=== PATIENT | male | born 1960 | race Hispanic/Latino ===

== ENCOUNTER 2019-04-01 13:03 | Emergency (ER) | payer SELFPAY ==
[2019-04-01 13:31] LABS: BASOPHILS % (AUTO) 0.9 % (0.0-5.0); EOSINOPHILS % (AUTO) 3.9 % (0.0-8.0); HEMATOCRIT 43.3 % (42-54); LYMPHOCYTES % (AUTO) 26.7 % (21.0-51.0); MEAN CORPUSCULAR HEMOGLOBIN 29.4 pg (27.0-33.0); MEAN CORPUSCULAR HGB CONC 33.5 g/dL (32.0-36.0); MEAN CORPUSCULAR VOLUME 87.8 fL (79-99); MONOCYTES % (AUTO) 8.5 % (3.0-13.0); NEUTROPHILS % (AUTO) 59.7 % (40.0-77.0); PLATELET COUNT (AUTO) 229 K/uL (130-400); RED BLOOD CELL COUNT(AUTO) 4.93 MIL/uL (4.50-6.20); RED CELL DISTRIBUTION WIDTH 12.5 % (11.0-15.5); WHITE BLOOD COUNT (AUTO) 7.6 K/uL (4.8-10.8)
[2019-04-01 13:48] LABS: CREATININE 0.9 mg/dL (0.5-1.5); POTASSIUM 3.8 mmol/L (3.5-5.1)
[2019-04-01] MEDS ORDERED: MECLIZINE HCL 25 MG TABLET ONE ×2 (13:48→13:55)
[2019-04-01 13:52] LABS: ALBUMIN 4.2 g/dL (3.5-5.0); BILIRUBIN,TOTAL 0.2 mg/dL (0.2-1.0); TOTAL PROTEIN, SERUM 8.1 g/dL (6.0-8.3)
[2019-04-01 14:20] LABS: INR 0.93 (0.85-1.15); PARTIAL THROMBOPLASTIN TIME 24.1 SEC (26.3-35.5); PROTHROMBIN TIME 9.8 SEC (9.6-11.6)
== END 2019-04-01 15:04 | disposition home or self-care (01) ==
LOC: EDH 13:03
DX: R42 Dizziness and giddiness (principal); I10 Essential (primary) hypertension
CPT/HCPCS: 36415; 70450; 71045; 80053; 82550; 84484; 85025; 85610; 85730; 93005

== ENCOUNTER 2021-12-27 19:55 | Emergency (ER) | payer OTHER, SELFPAY ==
[~2021-12-27] VITALS: Ht 167.6 cm; Wt 86.2 kg
[2021-12-27 20:29] LABS: BASOPHILS % (AUTO) 0.6 % (0.0-5.0); EOSINOPHILS % (AUTO) 2.6 % (0.0-8.0); HEMATOCRIT 43.4 % (42-54); LYMPHOCYTES % (AUTO) 25.6 % (21.0-51.0); MEAN CORPUSCULAR HEMOGLOBIN 30.3 pg (27.0-33.0); MEAN CORPUSCULAR HGB CONC 34.8 g/dL (32.0-36.0); MONOCYTES % (AUTO) 8.7 % (3.0-13.0); NEUTROPHILS % (AUTO) 62.3 % (40.0-77.0); PLATELET COUNT (AUTO) 229 K/uL (130-400); RED BLOOD CELL COUNT(AUTO) 4.99 MIL/uL (4.50-6.20); RED CELL DISTRIBUTION WIDTH 12.5 % (11.0-15.5); WHITE BLOOD COUNT (AUTO) 12.5 K/uL (4.8-10.8)
[2021-12-27] MEDS ORDERED: QUETIAPINE FUMARATE 25 MG TAB PO SCH (20:30)
[2021-12-27] MEDS ORDERED: NIFEDIPINE 10 MG CAP PO ONE ×2 (20:30→21:30)
[2021-12-27 20:36] LABS: APPEARANCE,URINE CLEAR (CLEAR); BILIRUBIN,URINE NEGATIVE (NEGATIVE); COLOR,URINE YELLOW (YELLOW); GLUCOSE, URINE (UA) NEGATIVE (NEGATIVE); KETONES,URINE NEGATIVE (NEGATIVE); LEUKOCYTE ESTERASE ,URINE NEGATIVE Leu/uL (NEGATIVE); NITRATE,URINE NEGATIVE (NEGATIVE); OCCULT BLOOD,URINE NEGATIVE (NEGATIVE); PROTEIN,URINE 20 mg/dL (NEGATIVE); UROBILINOGEN,URINE 0.2 mg/dL (0.2-1.0)
[2021-12-27 20:39] LABS: CREATININE 0.9 mg/dL (0.5-1.5); POTASSIUM 3.6 mmol/L (3.5-5.1)
[2021-12-27 20:45] LABS: BACTERIA,URINE RARE /HPF (None Seen); MUCUS,URINE FEW LPF (None Seen); TOTAL PROTEIN, SERUM 8.1 g/dL (6.0-8.3)
[2021-12-27] MEDS ORDERED: KETOROLAC 30MG VIAL (30MG/ML) ONE (22:06)
[2021-12-27] MEDS ORDERED: KETO10 PO (22:12)
[2021-12-27] MEDS ORDERED: LOSA1TAB42 PO (22:12)
[2021-12-27] MEDS ORDERED: FAMO-136 PO (22:12)
[2021-12-27] MEDS ORDERED: ONDA4TAB10 PO (22:12)
[2021-12-27 22:30] VITALS: BP 152/88
[2021-12-27] MEDS ORDERED: KETOROLAC 30MG VIAL (30MG/ML) IVP ONE (22:30)
== END 2021-12-27 22:33 | disposition home or self-care (01) ==
LOC: EDH 19:55
DX: K29.70 Gastritis, unspecified, without bleeding (principal); I10 Essential (primary) hypertension; N20.0 Calculus of kidney; K76.0 Fatty (change of) liver, not elsewhere classified; E66.9 Obesity, unspecified; Z68.30 Body mass index [BMI] 30.0-30.9, adult
CPT/HCPCS: 99285; 74176; 96374; 76705; 71045; 84484; 80053; 83690; 85025; 86140; 81001; 36415; 93005; J1885

== ENCOUNTER 2021-12-30 01:43 | Inpatient (IN) | payer OTHER ==
[~2021-12-30] VITALS: Ht 167.6 cm; Wt 89.0 kg
[2021-12-30] VITALS (25 sets, daily range): BP systolic 105–149; BP diastolic 59–81
[~2021-12-30 01:43] MED LIST: FAMO-136 PO; KETO10 PO; LOSA1TAB42 PO; ONDA4TAB10 PO
[2021-12-30 02:22] LABS: BASOPHILS % (AUTO) 0.4 % (0.0-5.0); EOSINOPHILS % (AUTO) 0.3 % (0.0-8.0); HEMATOCRIT 43.3 % (42-54); LYMPHOCYTES % (AUTO) 9.3 % (21.0-51.0); MEAN CORPUSCULAR HEMOGLOBIN 29.6 pg (27.0-33.0); MEAN CORPUSCULAR HGB CONC 34.2 g/dL (32.0-36.0); MEAN CORPUSCULAR VOLUME 86.6 fL (79-99); MONOCYTES % (AUTO) 9.9 % (3.0-13.0); NEUTROPHILS % (AUTO) 79.8 % (40.0-77.0); PLATELET COUNT (AUTO) 231 K/uL (130-400); RED CELL DISTRIBUTION WIDTH 12.7 % (11.0-15.5); WHITE BLOOD COUNT (AUTO) 15.7 K/uL (4.8-10.8)
[2021-12-30 02:27] LABS: APPEARANCE,URINE CLEAR (CLEAR); BILIRUBIN,URINE NEGATIVE (NEGATIVE); COLOR,URINE LIGHT-YELLOW (YELLOW); GLUCOSE, URINE (UA) NEGATIVE (NEGATIVE); KETONES,URINE 10 mg/dL (NEGATIVE); LEUKOCYTE ESTERASE ,URINE NEGATIVE Leu/uL (NEGATIVE); NITRATE,URINE NEGATIVE (NEGATIVE); OCCULT BLOOD,URINE SMALL (NEGATIVE); PH,URINE 5.5 (5.0-8.0); PROTEIN,URINE NEGATIVE (NEGATIVE); UROBILINOGEN,URINE 0.2 mg/dL (0.2-1.0)
[2021-12-30 02:29] LABS: CREATININE 1.1 mg/dL (0.5-1.5); POTASSIUM 3.3 mmol/L (3.5-5.1)
[2021-12-30 02:35] LABS: MUCUS,URINE RARE LPF (None Seen); RBC,URINE 26-50 /HPF (0-1)
[2021-12-30 02:38] LABS: ALBUMIN 3.9 g/dL (3.5-5.0); TOTAL PROTEIN, SERUM 8.4 g/dL (6.0-8.3)
[2021-12-30] MEDS ORDERED: HYDROMORPHONE 0.5 MG SYG (0.5MG/0.5ML) IVP ONE (03:00)
[2021-12-30] MEDS ORDERED: ZOSYN 3.375GM +NS 50ML IV ONE (03:00)
[2021-12-30] MEDS ORDERED: HYDRALAZINE 20MG/ML VIAL IV ONE (03:00)
[2021-12-30] MEDS ORDERED: ONDANSETRON 4MG INJ IV PRN (03:30)
[2021-12-30] MEDS ORDERED: LIDOCAINE HCL-MPF 1% 2ML VIAL IV PRN (03:30)
[2021-12-30 03:34] LABS: INR 0.94 (0.85-1.15); MAGNESIUM 1.8 mg/dL (1.80-2.40); PHOSPHORUS 3.1 mg/dL (2.5-4.9); PROTHROMBIN TIME 10.3 SEC (9.6-11.6)
[2021-12-30 03:35] LABS: PARTIAL THROMBOPLASTIN TIME 25.3 SEC (26.3-35.5)
[2021-12-30] MEDS: 0.9%NACL 1000ML 1,000 ML IV SCH ×2 (03:41→16:26)
[2021-12-30] MEDS: ZOSYN 3.375GM+NS 50ML 50 ML IV SCH ×3 (05:00→20:10)
[2021-12-30] MEDS: MORPHINE 4 MG SYG IV PRN ×2 (05:07→09:19)
[2021-12-30] MEDS: FAMOTIDINE 20MG VIAL IV SCH (08:28)
[2021-12-30] MEDS: TAMSULOSIN HCL 0.4 MG CAP.ER.24H PO SCH (08:28)
[2021-12-30] MEDS ORDERED: LACTATED RINGERS 1000ML 1,000 ML IV ONE (12:22)
[2021-12-30] MEDS ORDERED: ROCURONIUM 10MG/1ML SYR 10 MG/ML ML ONE (12:42)
[2021-12-30] MEDS ORDERED: FENTANYL CITRATE PF 50 MCG/1 ML 2ML VIAL ONE ×2 (12:42→14:25)
[2021-12-30] MEDS ORDERED: MIDAZOLAM HCL 1 MG/ML 2ML VIAL ONE (12:47)
[2021-12-30] MEDS ORDERED: LIDOCAINE PF 100MG/5ML (2%) SYRINGE 5ML ONE (12:47)
[2021-12-30] MEDS ORDERED: PROPOFOL 10 MG/ML 20ML VIAL IV ONE (12:47)
[2021-12-30] MEDS ORDERED: ONDANSETRON 4MG INJ ONE (12:49)
[2021-12-30] MEDS ORDERED: BUPIVACAINE/PF 0.25% 30ML VIAL IJ ONE (12:55)
[2021-12-30] MEDS ORDERED: GLYCOPYRROLATE 1 MG/5 ML SYRINGE ONE (14:21)
[2021-12-30] MEDS ORDERED: NEOSTIGMINE 5MG/5ML SYR IV ONE (14:21)
[2021-12-30] MEDS ORDERED: MEPERIDINE-PF 25 MG/ML SYG ONE ×2 (14:22→15:06)
[2021-12-30] MEDS: NICOTINE 21 MG/ 24 HR PATCH TD SCH (16:14)
[2021-12-30] MEDS: POTASSIUM CHLORIDE 20MEQ/100ML 100 ML IV PRN (16:25)
[2021-12-30] MEDS: MORPHINE 2 MG SYG IV PRN (16:38)
[2021-12-30] MEDS: KETOROLAC 10 MG TABLET PO SCH ×2 (17:52→20:25)
[2021-12-30] MEDS: ONDANSETRON ODT 4MG TAB PO SCH (20:10)
[2021-12-30] MEDS ORDERED: FAMOTIDINE 20MG TAB PO SCH (21:00)
[2021-12-30] MEDS: ACETAMINOPHEN 325 MG TAB PO PRN (21:15)
[2021-12-31] VITALS (7 sets, daily range): BP systolic 98–145; BP diastolic 59–75
[2021-12-31] MEDS: POTASSIUM CHLORIDE 20MEQ/100ML 100 ML IV PRN (00:02)
[2021-12-31 04:42] LABS: BASOPHILS % (AUTO) 0.4 % (0.0-5.0); EOSINOPHILS % (AUTO) 0.6 % (0.0-8.0); HEMATOCRIT 34.7 % (42-54); LYMPHOCYTES % (AUTO) 14.8 % (21.0-51.0); MEAN CORPUSCULAR HEMOGLOBIN 30.1 pg (27.0-33.0); MEAN CORPUSCULAR HGB CONC 33.4 g/dL (32.0-36.0); MEAN CORPUSCULAR VOLUME 90.1 fL (79-99); MONOCYTES % (AUTO) 10.9 % (3.0-13.0); NEUTROPHILS % (AUTO) 72.9 % (40.0-77.0); PLATELET COUNT (AUTO) 168 K/uL (130-400); RED BLOOD CELL COUNT(AUTO) 3.85 MIL/uL (4.50-6.20); RED CELL DISTRIBUTION WIDTH 12.9 % (11.0-15.5); WHITE BLOOD COUNT (AUTO) 13.9 K/uL (4.8-10.8)
[2021-12-31 04:58] LABS: CREATININE 1.4 mg/dL (0.5-1.5); POTASSIUM 3.8 mmol/L (3.5-5.1)
[2021-12-31] MEDS: ZOSYN 3.375GM+NS 50ML 50 ML IV SCH ×3 (05:18→19:34)
[2021-12-31] MEDS: MORPHINE 2 MG SYG IV PRN ×3 (05:18→13:37)
[2021-12-31] MEDS: KETOROLAC 10 MG TABLET PO SCH ×5 (08:51→19:37)
[2021-12-31] MEDS: FAMOTIDINE 20MG VIAL IV SCH (08:51)
[2021-12-31] MEDS: TAMSULOSIN HCL 0.4 MG CAP.ER.24H PO SCH (08:51)
[2021-12-31] MEDS: NICOTINE 21 MG/ 24 HR PATCH TD SCH (08:51)
[2021-12-31] MEDS: HYDROCHLOROTHIAZIDE 25 MG TABLET PO SCH (08:51)
[2021-12-31] MEDS: LOSARTAN 100 MG TABLET PO SCH (08:51)
[2021-12-31] MEDS: ONDANSETRON ODT 4MG TAB PO SCH ×3 (08:52→19:34)
[2021-12-31 10:15] LABS: ALBUMIN 2.6 g/dL (3.5-5.0); TOTAL PROTEIN, SERUM 6.3 g/dL (6.0-8.3)
[2021-12-31] MEDS: ACETAMINOPHEN 325 MG TAB PO PRN (16:21)
[2021-12-31] MEDS: 0.9%NACL 1000ML 1,000 ML IV SCH (19:34)
[2021-12-31] MEDS ORDERED: ACETAMINOPHEN 325 MG TAB PO PRN (22:00)
[2021-12-31] MEDS ORDERED: HYDROCODONE/ACETAMINOPHEN 5/325 MG TAB PO PRN ×2 (22:00)
[2021-12-31] MEDS ORDERED: NALOXONE HCL 0.4 MG/1 ML ML IVP PRN (22:00)
[2021-12-31] MEDS ORDERED: MORPHINE 2 MG SYG IVP PRN (22:00)
[2022-01-01 04:00] VITALS: BP 141/72
[2022-01-01 04:28] LABS: BASOPHILS % (AUTO) 0.3 % (0.0-5.0); EOSINOPHILS % (AUTO) 1.4 % (0.0-8.0); LYMPHOCYTES % (AUTO) 9.6 % (21.0-51.0); MEAN CORPUSCULAR HGB CONC 34.4 g/dL (32.0-36.0); MEAN CORPUSCULAR VOLUME 87.2 fL (79-99); MONOCYTES % (AUTO) 9.3 % (3.0-13.0); NEUTROPHILS % (AUTO) 79.1 % (40.0-77.0); PLATELET COUNT (AUTO) 182 K/uL (130-400); RED CELL DISTRIBUTION WIDTH 12.6 % (11.0-15.5); WHITE BLOOD COUNT (AUTO) 11.7 K/uL (4.8-10.8)
[2022-01-01 05:03] LABS: ALBUMIN 2.5 g/dL (3.5-5.0); CREATININE 1.1 mg/dL (0.5-1.5); POTASSIUM 3.1 mmol/L (3.5-5.1); TOTAL PROTEIN, SERUM 6.5 g/dL (6.0-8.3)
[2022-01-01] MEDS: ZOSYN 3.375GM+NS 50ML 50 ML IV SCH ×2 (06:20→13:29)
[2022-01-01] MEDS: 0.9%NACL 1000ML 1,000 ML IV SCH (08:20)
[2022-01-01 08:55] VITALS: BP 142/81
[2022-01-01] MEDS: ONDANSETRON ODT 4MG TAB PO SCH ×2 (09:00→13:30)
[2022-01-01] MEDS ORDERED: ENOXAPARIN SODIUM 40 MG/0.4 ML SYRINGE SQ SCH (09:00)
[2022-01-01] MEDS: LOSARTAN 100 MG TABLET PO SCH (09:07)
[2022-01-01] MEDS: HYDROCHLOROTHIAZIDE 25 MG TABLET PO SCH (09:08)
[2022-01-01] MEDS: FAMOTIDINE 20MG VIAL IV SCH (09:08)
[2022-01-01] MEDS: NICOTINE 21 MG/ 24 HR PATCH TD SCH (09:08)
[2022-01-01] MEDS: TAMSULOSIN HCL 0.4 MG CAP.ER.24H PO SCH (09:08)
[2022-01-01] MEDS ORDERED: LACTULOSE 20 GM/30 ML UDCUP PO PRN (09:30)
[2022-01-01 12:00] VITALS: BP 152/85
[2022-01-01] MEDS ORDERED: LOSA1TAB42 PO (14:44)
== END 2022-01-01 17:15 | disposition home or self-care (01) | DRG 419 ==
LOC: EDH 01:43 → EDHIP 01:44 → 4CH 15:42
PROVIDERS: ADMIT Internal Medicine; ATTEND Internal Medicine
PROC: 0FT44ZZ Resection of Gallbladder, Percutaneous Endoscopic Approach (ICD-10-PCS; principal; 2021-12-30 13:14)
DX: K81.0 Acute cholecystitis (principal); E87.6 Hypokalemia; Z68.31 Body mass index [BMI] 31.0-31.9, adult; G89.29 Other chronic pain; Z20.822 Contact with and (suspected) exposure to COVID-19; Z87.442 Personal history of urinary calculi; K82.8 Other specified diseases of gallbladder; E66.9 Obesity, unspecified; R50.82 Postprocedural fever
CPT/HCPCS: 36415; 80053; 81001; 83605; 83735; 84100; 84145; 84484; 85025; 85610; 85730; 86850; 86900; 86901; 87040; 87088; 87635; 93005; G0378; J0360; J1170; J1650; J2001; J2175; J2250; J2270; J2405; J2543; J2704; J2710; J3010; J3480; J3490; J7030; J7120